=== PATIENT | female | born 1995 | race Two or more races ===

== ENCOUNTER → 2021-10-27 11:25 | Outpatient (CLI) | payer OTHER, SELFPAY ==
--- NOTE | ~2021-10-27 | XR_ITS ---
XR sacroiliac joints min 3V DATE: 10/27/2021 11:51 INDICATION: Chronic sacroiliac pain TECHNIQUE: AP and bilateral oblique views COMPARISON: None FINDINGS: The sacroiliac joints are intact, without evidence of fracture or dislocation, erosive waters ge or ankylosis. IMPRESSION: Negative Reviewed, dictated and finalized at [facility]. Reviewed, dictated and finalized at location [facility]. IMPRESSION: Negative
== END ==
PROVIDERS: PCP Family Medicine; Visit Provider Physician Assistant
DX: M53.3 Sacrococcygeal disorders, not elsewhere classified (principal); G89.29 Other chronic pain
CPT/HCPCS: 72202

== ENCOUNTER → 2021-10-31 10:34 | Outpatient (CLI) | payer OTHER, SELFPAY ==
--- NOTE | ~2021-10-31 | US_ITS ---
US thyroid INDICATION: Prominent right thyroid nodule TECHNIQUE: Real-time sonographic images of the thyroid gland were obtained. COMPARISON: No prior studies for comparison. FINDINGS: The right thyroid lobe measures 5.1 x 0.9 x 1.2 cm. The left thyroid lobe measures 4.5 x 0 .7 x 1.1 cm. There is normal echotexture and echogenicity throughout the thyroid gland. In the left l obe there is a small 3 mm hypoechoic mixed solid and cystic mass which is wider than tall, smoothly m arginated without calcifications, likely benign. Normal vascular flow is present. IMPRESSION: 1. Partially cystic 3 mm left thyroid nodule, likely benign. Otherwise, unremarkable thyroid ultraso und. Reviewed, dictated and finalized at location [facility]. IMPRESSION: 1. Partially cystic 3 mm left thyroid nodule, likely benign. Otherwise, unrema rkable thyroid ultrasound.
== END ==
PROVIDERS: PCP Family Medicine; Visit Provider Family Medicine
DX: R53.83 Other fatigue (principal); E07.89 Other specified disorders of thyroid; E04.1 Nontoxic single thyroid nodule
CPT/HCPCS: 76536

== ENCOUNTER → 2021-11-29 13:10 | Outpatient (CLI) | payer OTHER, SELFPAY ==
--- NOTE | ~2021-11-29 | MR_ITS ---
EXAMINATION: MRI SACRUM W/O CONTRAST DATE: 11/29/2021 14:22 INDICATION: Chronic sacroiliac joint pain TECHNIQUE: Magnetic resonance imaging (MRI) of the sacrum and coccyx was performed without and with 1 0 mL Multihance intravenous contrast. Sequences included sagittal PD-weighted FSE; oblique coronal T 1-weighted FSE, T2-weighted FSE and T2-weighted FS FSE; oblique axial T2-weighted FS FSE and T1-weigh shon FSE. Additional postcontrast oblique axial and oblique coronal T1-weighted FS FSE were obtained. COMPARISON: Radiographs dated 10/27/2021 FINDINGS: Bone alignment is normal. Normal marrow signal throughout. No fracture or pathologic marrow replacing process. Bilateral sacroiliac joint spaces are normal with no enhancing synovitis, erosions or other degenerative subarticular changes. Annular fissures posteriorly at L4-L5 and L5-S1 with normal heigh t and signal and with no extension of the discs beyond the endplate margins with no central canal kadi nosis. Minimal to mild facet osteoarthritis at both levels without neural foraminal stenosis. 2.9 cm left adnexal cyst/dominant follicle. Bladder, uterus and right adnexa are unremarkable. Small amount of likely physiologic free fluid in the pelvis. IMPRESSION: 1. Normal sacrum and bilateral sacroiliac joints. 2. Minimal lower lumbar spondylosis with annular fissures and minimal to mild facet osteoarthritis at L4-L5 and L5-S1 with no central canal or neural foraminal stenosis. 3. Small amount of likely physiologic free fluid in the cul-de-sac with 2.8 cm cyst versus dominant f ollicle at the left ovary. Reviewed, dictated and finalized at location [facility]. IMPRESSION: 1. Normal sacrum and bilateral sacroiliac joints. 2. Minimal lower lumbar spondylosis with annular fissures and minimal to mild f acet osteoarthritis at L4-L5 and L5-S1 with no central canal or neural foramina l stenosis. 3. Small amount of likely physiologic free fluid in the cul-de-sac with 2.8 cm cyst versus dominant follicle at the left ovary.
[2021-11-29 13:51] LABS: Estimated Glomerular Filt Rate > 60
== END ==
PROVIDERS: PCP Family Medicine; Visit Provider Physician Assistant
DX: M53.3 Sacrococcygeal disorders, not elsewhere classified (principal); G89.29 Other chronic pain; M47.816 Spondylosis without myelopathy or radiculopathy, lumbar region; M85.88 Other specified disorders of bone density and structure, other site
CPT/HCPCS: 72197; A9577

== ENCOUNTER 2023-08-11 11:13 | Emergency (ER) | payer OTHER, SELFPAY ==
--- NOTE | 2023-08-11 11:29 | ED.URI ---
HPI - URI/Sore Throat General Chief Complaint: Upper Respiratory Infection Stated Complaint: Respiratory issues Time Seen by Provider: 08/11/23 11:29 Source: patient Mode of arrival: ambulatory Limitations: no limitations History of Present Illness HPI Narrative: 27-year-old female presents with complaint postnasal drainage, sinus congestion, fluid to her right ear for 2 days. Afebrile. Taking Benadryl to treat symptoms. No other complaints today. All systems reviewed and negative except as noted above. Related Data Home Medications Medication Instructions Recorded Confirmed hydroxychloroquine 200 mg tablet 200 mg PO DAILY 06/08/21 08/11/23 (Plaquenil) ropinirole 0.25 mg tablet 0.25 mg PO DIRECTED 08/09/23 08/11/23 Allergies Allergy/AdvReac Type Severity Reaction Status Date / Time No Known Allergies Allergy Verified 08/11/23 11:37 Review of Systems Review of Systems: CONSTITUTIONAL: Denies fever, chills, or sweats. EYES: Denies visual changes, redness, or discharge. ENT: Reports rhinorrhea, congestion, fluid to right ear. Denies sore throat, or otalgia. CARDIOVASCULAR: Denies chest pain, palpitations, or edema. RESPIRATORY: Denies cough or dyspnea. GASTROINTESTINAL: Denies abdominal pain, nausea, vomiting, or diarrhea. GENITOURINARY: Denies dysuria or hematuria. SKIN: Denies rash or itching. MUSCULOSKELETAL: Denies back pain, joint pain, or myalgia. NEUROLOGIC: Denies headache, numbness, or weakness. PSYCHIATRIC: Denies anxiety or depression. All other systems reviewed are negative, except as documented in HPI. [facility] Past Medical History Medical History (Updated 08/11/23 @ 11:48 by April Mcnair NP) Adjustment disorder with anxious mood Pre-syncope RLS (restless legs syndrome) Unspecified vitamin D deficiency Family History Family History Mother Family history of thyroid disease Family history of migraine headaches Grandparent Family history of kidney disease Family history of malignant neoplasm of breast Sibling Bipolar 1 disorder Social History Social History Smoking status: Never smoker Alcohol intake: never Lack of Transportation: No Lack of Food: Never True Current Housing: I Have Housing Concerned About Future Housing: No Difficulty Paying Gas/Electric Bills: Decline to Answer Difficulty Paying for Meds: Decline to Answer Currently Unemployed: Decline to Answer Education: Grade School Difficulty w/ Childcare or Family Care: Decline to Answer Living arrangements: with family Occupation/Education: unemployed Gender identity (if verbalized by the patient): Genderqueer Comments At time of signature, agree with nursing past medical, surgical, social and family history. There is no relevant family history pertinent to the presenting complaint. Exam Narrative: GENERAL: This is a well-nourished, well-developed patient, in no apparent distress. HEAD: normocephalic, atraumatic. EYES: PERRL. Sclera clear/white. Vision is grossly intact. EARS: External ears normal, auditory canals clear and without drainage, clear fluid to bilateral TMs without erythema or perforation. Hearing grossly intact. NOSE: External nose normal with no obvious nasal discharge, nares without redness, no rhinorrhea. THROAT: Mucous membranes moist, postnasal drainage with mild erythema. No swelling or exudates. NECK: Neck supple, non-tender without lymphadenopathy, masses or thyromegaly. CARDIOVASCULAR: Regular rate and rhythm without murmurs, gallops, or rubs. RESPIRATORY: Clear to auscultation. Breath sounds equal bilaterally. No wheezes, rales, or rhonchi. SKIN: warm, Dry, intact with no suspicious lesions or rash, good texture and turgor. NEURO: awake, alert, and oriented to person, place and time. There were no obvious focal neurologic abnormalities. EXTREM
[2023-08-11 11:33] VITALS: BP 99/74; PULSE 92; RESP 16; TEMP 37.1; O2SAT 99
== END 2023-08-11 11:50 | disposition home or self-care (01) ==
PROVIDERS: Emergency Provider Nurse Practitioner Family; PCP Family Medicine
DX: J01.90 Acute sinusitis, unspecified (principal); B97.89 Other viral agents as the cause of diseases classified elsewhere; Z79.899 Other long term (current) drug therapy; Z20.822 Contact with and (suspected) exposure to COVID-19
CPT/HCPCS: 87426; 87804; 99213; G0463

== ENCOUNTER 2025-04-29 17:30 | Emergency (ER) | payer OTHER, SELFPAY ==
--- NOTE | 2025-04-29 17:33 | ED.URI ---
HPI - URI/Sore Throat General Chief Complaint: Upper Respiratory Infection Stated Complaint: SINUS CONGESTION Time Seen by Provider: 04/29/25 17:31 Source: patient Mode of arrival: ambulatory Limitations: no limitations History of Present Illness HPI Narrative: Mahsa is a 29-year-old transgender person who is complaining of runny nose, nasal congestion, right ear discomfort, cough, and sore throat x2 days. They tried using Vicks vapo rub, Zyrtec, and half of it dose of DayQuil. Any medications for their symptoms. Denies any fever, chills, or body aches. Denies any chest pain or shortness of breath. Related Data Home Medications ?Medication ?Instructions ?Recorded ?Confirmed ?Last Taken ?Type hydroxychloroquine 200 mg tablet 200 mg PO DAILY 06/08/21 04/29/25 Unknown History (Plaquenil) bupropion HCl 150 mg tablet,12 hr 150 mg PO DAILY 12/02/24 04/29/25 Unknown History sustained-release (Wellbutrin SR) Allergies Allergy/AdvReac Type Severity Reaction Status Date / Time No Known Allergies Allergy Verified 04/29/25 17:38 Review of Systems Review of Systems: Pertinent positives per HPI. Patient denies any fever, chills, rash, headache, visual changes, dizziness, shortness of breath, chest pain, palpitations, nausea, vomiting, diarrhea, constipation, abdominal pain, or any urinary issues. [facility] Past Medical History Medical History RLS (restless legs syndrome) Unspecified vitamin D deficiency Adjustment disorder with anxious mood Pre-syncope Family History Family History Mother Family history of thyroid disease Family history of migraine headaches Grandparent Family history of kidney disease Family history of malignant neoplasm of breast Sibling Bipolar 1 disorder Social History Social History Smoking status: Never smoker Alcohol intake: never Substance use: never Substance use type: does not use Lack of Transportation: No Lack of Food: Never True Current Housing: I Have Housing Concerned About Future Housing: No Difficulty Paying Gas/Electric Bills: Decline to Answer Difficulty Paying for Meds: Decline to Answer Currently Unemployed: Decline to Answer Education: Grade School Difficulty w/ Childcare or Family Care: Decline to Answer Living arrangements: with family Occupation/Education: unemployed Gender identity (if verbalized by the patient): Genderqueer Comments At the time of my signature, I reviewed and agree with the nursing past medical, surgical, social, and family history. There is no relevant family history pertinent to the patient complaint. Exam Narrative: General: Well-developed, well nourished, in no apparent distress Head: Normocephalic, atraumatic Eyes: Pupils equally round and reactive to light bilaterally, EOM intact, sclera and conjunctive clear, no discharge, lids normal Ears: TMs intact and congested, ear canals clear, no drainage, grossly hearing normal. Nose: Nares patent, clear nasal discharge, mild inflammation, no sinus tenderness. Mouth: Oral pharynx without lesions or masses, good dentition, MMM. Postnasal drip, tonsils surgically absent Neck: Supple, trachea midline, no enlargement of anterior or posterior cervical nodes, no thyroid masses or goiter palpable. Cardio: Regular rate and rhythm, s1 and s2 normal, no murmur appreciated. Resp: Clear to auscultation bilaterally, no rhonchi, rales, wheezing or rubs Course Course Level of Care: Express Care Visit Vital Signs Vital signs: Vital Signs Oxygen Delivery Room Air 04/29/25 17:35 Temperature 36.8 C 04/29/25 17:44 Pulse Rate 85 04/29/25 17:44 Respiratory Rate 16 04/29/25 17:44 Blood Pressure 103/67 04/29/25 17:44 Pulse Oximetry 100 04/29/25 17:44 Oxygen Delivery Room Air 04/29/25 17:35 [facility] Narrative Medical decision making narrative: At the time of visit patient is resting comfortably on the exam table. Patient appears to be nontoxic. complaining of runny nose, nasal congestion, right ear discomfort, cough, and sore throat x2 days. They tried using Vicks vapo rub, Zyrtec, and half of it dose of DayQuil for their symptoms. Denies any fever, chills, or body aches. Denies any chest pain or shortness of breath. On exam patient has bilateral TMs intact and congested, clear nasal drainage, oropharynx mildly red with postnasal drip, tonsils surgically absent, no cervical lymphadenopathy, heart rates regular rate and rhythm, lung sounds are clear. COVID, flu, and strep test were ordered. Labs: Strep, COVID and influenza testing was performed and negative in the clinic today. We will send strep for culture. Plan: I suspect patient has URI/pharyngitis/viral syndrome. Work note was given. Supportive measures were discussed with the patient and they voiced understanding discharge instructions and agrees to treatment plan. Return precautions reviewed Differential Diagnosis Differential Diagnosis: URI, pharyngitis, viral syndrome, strep pharyngitis, otitis media, pneumonia, Lab Data Labs: Lab Results 04/29/25 Range/Units 17:57 POC Influenza A Ag Negative (Negative) POC Influenza B Ag Negative (Negative) POC SARS CoV-2 Ag Negative (Negative) POC Grp A Strep Screen Negative (Negative) Discharge Plan Discharge Clinical Impression: Viral infection Upper respiratory infection Qualifiers: URI type: unspecified URI Qualified Code(s): J06.9 - Acute upper respiratory infection, unspecified Pharyngitis Qualifiers: Pharyngitis/tonsillitis etiology: unspecified etiology Qualified Code(s): J02.9 - Acute pharyngitis, unspecified Patient Disposition: Home Condition: Stable Instructions: Antibiotic Form, Pharyngitis (ED), Viral Syndrome (ED), Cold Symptoms (ED) Additional Instructions: COVID, flu, and strep test were all negative in the clinic today. We will send strep for culture. May take DayQuil/NyQuil for cold/flu symptoms Increase fluids and stay well hydrated May take Tylenol or motrin as directed on bottle for pain/fever May use Flonase 1 spray in each nare daily May take OTC antihistamines such as Zyrtec or Claritin daily as directed on bottle May apply Vicks vapor rub to chest to open sinuses Sinus rinses for congestion Cepacol spray, cough drops, throat lozenges, warm tea with honey/lemon, gargle salt water to soothe throat BRAT diet for diarrhea Clear liquids x 24 hours then advance as tolerated for nausea/vomiting Go to the ED if you develop a worsening in your condition- high fever not controlled by Tylenol or Motrin, dehydration, weakness, lethargy, shortness of breath, or chest pain. Follow up with your PCP in 3-5 days if symptoms persist. Patient Language: Faroese Prescriptions: No Action hydroxychloroquine [Plaquenil] 200 mg tablet 200 mg PO DAILY bupropion HCl [Wellbutrin SR] 150 mg tablet sustained-release 12 hr 150 mg PO DAILY measles,mumps,rubella vacc(PF) 10exp3.4-4.2- [id number]/0.5mL suspension for reconstitution 0.5 ml subcut ONCE Qty: 1 0RF Rx Instructions: as a single dose Arexvy (PF) 120 mcg/0.5 mL suspension for reconstitution 0.5 ml IM ONCE Qty: 1 0RF Prevnar 20 (PF) 0.5 mL syringe 0.5 ml IM ONCE Qty: 0.5 0RF Rx Instructions: as a single dose sulfasalazine 500 mg tablet See Rx Instructions PO DAILY Qty: 270 1RF Rx Instructions: 2 tablets in the am, 1 tablet in the pm levothyroxine [Synthroid] 75 mcg tablet 75 mcg PO DAILY Qty: 90 3RF metoprolol tartrate 25 mg tablet 75 mg PO DAILY Qty: 270 1RF Rx Instructions: 1 tab q am, 2 tab q pm norethindrone-e.estradiol-iron [Junel FE 06/16 (28)] 1 mg-20 mcg (21)/75 mg (7) tablet 1 tablet PO DAILY Qty: 84 2RF duloxetine 60 mg capsule,delayed release(DR/EC) 60 mg PO DAILY Qty: 90 1RF clonazepam 0.25 mg tablet,disintegrating 0.25 mg PO DAILY PRN (Reason: leg movements) Qty: 90 1RF metoprolol tartrate 25 mg tablet 75 mg PO DAILY Qty: 90 0RF Rx Instructions: 1 tablet in AM and 2 tablets in the PM. Follow-up/Referrals: Delvin Boston MD [Primary Care Provider, Family Practice] Stand Alone Forms: Work/School Release IP Time of Disposition: 17:46 Quality NIHSS Nursing Documentation ED NIHSS nursing documentation: reviewed/agree
[2025-04-29 17:44] VITALS: BP 103/67; PULSE 85; RESP 16; TEMP 36.8; O2SAT 100
[2025-04-29 17:58] LABS: EDCOVIDSCREEN Negative (Negative); EDINFLUASCREEN Negative (Negative); EDINFLUBSCREEN Negative (Negative); EDSTREPNEGPOS1 Negative (Negative)
== END 2025-04-29 18:00 | disposition home or self-care (01) ==
PROVIDERS: Emergency Provider Nurse Practitioner Family; PCP Family Medicine
DX: B34.9 Viral infection, unspecified (principal); J06.9 Acute upper respiratory infection, unspecified; J02.9 Acute pharyngitis, unspecified; Z20.822 Contact with and (suspected) exposure to COVID-19; G25.81 Restless legs syndrome
CPT/HCPCS: 87081; 87426; 87804; 87880; 99213; G0463